=== PATIENT | male | born 1975 | race African-American/Black ===

== ENCOUNTER → 2025-01-26 | Outpatient (CLI) | payer OTHER ==
[~2025-01-26] MED LIST: TIVICAY50 MG PO; TRUVADA 200 MG1 EAC1 PO
[2025-01-27 23:47] LABS: HCV QNT BY NAAT (IU/ML) Not Detected; HCV QNT BY NAAT (LOG IU/ML) Not Detected; HCV QNT BY NAAT INTERP Not Detected (Not Detected)
[2025-01-28 10:55] LABS: HIV 1,2 COMBO ANTIGEN/ANTIBODY Negative (Negative)
== END ==
LOC: LAB 10:01 → LAB SHORT 10:01
PROVIDERS: Chiropractor
DX: Z20.9 Contact with and (suspected) exposure to unspecified communicable disease (principal)
CPT/HCPCS: 87389; 87522

== ENCOUNTER → 2025-06-28 | Outpatient (CLI) | payer OTHER ==
[2025-06-30 11:10] LABS: HIV 1,2 COMBO ANTIGEN/ANTIBODY Negative (Negative)
[2025-06-30 11:33] LABS: HEPATITIS B SURFACE ANTIBODY <3.10 IU/L
[2025-06-30 15:22] LABS: HCV QNT BY NAAT (IU/ML) Not Detected; HCV QNT BY NAAT (LOG IU/ML) Not Detected; HCV QNT BY NAAT INTERP Not Detected (Not Detected)
== END ==
LOC: LAB SHORT 10:27 → LAB 10:27
PROVIDERS: Physician Assistant
DX: Z20.9 Contact with and (suspected) exposure to unspecified communicable disease (principal)
CPT/HCPCS: 84460; 87340; 87389; 87522